=== PATIENT | male | born 1940 | race Caucasian/White ===

== ENCOUNTER → 2018-03-30 13:22 | Outpatient (CLI) | payer MEDICARE | END | disposition home or self-care (01) | LOC: D.CT 13:22 | DX: I65.23 Occlusion and stenosis of bilateral carotid arteries (principal) ==

== ENCOUNTER 2020-07-09 19:41 | Inpatient (IN) | payer MEDICARE ==
[~2020-07-09] VITALS: Ht 177.8 cm; Wt 72.6 kg
[2020-07-09 20:30] VITALS: BP 155/71
[2020-07-09 20:41] LABS: BASOPHILS 0.1 % (0-2); EOSINOPHILS 0.8 % (0-7); HEMATOCRIT 36.2 % (42.0-54.0); HEMOGLOBIN 12.8 g/dL (13.5-17.5); IMMATURE GRANULOCYTES 0.3 % (0-5); LYMPHOCYTES 6.4 % (15-50); MCHC 35.4 g/dL (31.0-37.0); MEAN PLATELET VOLUME 8.8 fL (7.4-10.4); MONOCYTES 9.3 % (2-11); NEUTROPHILS 83.1 % (40-80); PLATELET COUNT 240 10x3/uL (130-400); RBC 3.77 10x6/uL (4.20-6.10); WBC 10.8 10x3/uL (4.8-10.8)
[2020-07-09 21:24] LABS: ALKALINE PHOSPHATASE 82 U/L (30-120); ALT (SGPT) 38 U/L (10-68); AMYLASE - SERUM 154 U/L (25-115); BILIRUBIN - TOTAL 0.63 mg/dL (0.2-1.3); CALCIUM 8.8 mg/dL (8.5-10.1); CARBON DIOXIDE 25.6 mmol/L (21.0-32.0); CREATININE - SERUM 1.3 mg/dL (0.6-1.3); GLUCOSE 113 mg/dL (74-106); LIPASE 442 U/L (73-393); POTASSIUM - SERUM 4.3 mmol/L (3.5-5.1); PROTEIN - SERUM 7.2 g/dL (6.4-8.2); UREA NITROGEN 21 mg/dL (7-18); eGFR NON AFRICAN AMERICAN 57 mL/min (90-120)
[2020-07-09 21:30] VITALS: BP 142/69
[2020-07-09 21:33] LABS: CALC OSMOLALITY 240 mosm/kg (275-300); SODIUM 117 mmol/L (136-145)
[2020-07-09 21:34] LABS: CHLORIDE - SERUM 84 mmol/L (98-107); TROPONIN-I < 0.017 ng/mL (0.000-0.060)
[2020-07-09] MEDS ORDERED: AVAPRO300 MG PO (22:44)
[2020-07-09] MEDS ORDERED: NORVASC10 MG PO (22:46)
[2020-07-09] MEDS ORDERED: ZYRTEC10 MG PO (22:47)
[2020-07-09] MEDS ORDERED: FOLIC ACID0.8 MG PO (22:51)
[2020-07-09] MEDS ORDERED: ZYLOPRIM100 MG PO (22:52)
[2020-07-09] MEDS ORDERED: HYDRALAZINE HCL10 MG PO (22:53)
[2020-07-09 23:49] VITALS: BP 144/58
[2020-07-10 00:21] LABS: BILIRUBIN NEGATIVE (NEGATIVE); KETONE NEGATIVE (NEGATIVE); NITRITE NEGATIVE (NEGATIVE); UROBILINOGEN NORMAL mg/dL (< 2)
[2020-07-10] MEDS ORDERED: PREDNISONE5 MG PO (01:06)
[2020-07-10] MEDS ORDERED: XANAX1 MG PO (01:07)
[2020-07-10] MEDS ORDERED: TRILEPTAL300 MG PO (01:10)
[2020-07-10] MEDS ORDERED: SYNALAR 0.01 %60 ML TOPICAL (01:10)
[2020-07-10 03:12] VITALS: BP 160/69; BMI 23.0
[2020-07-10 04:00] VITALS: BP 160/69
[2020-07-10 06:13] LABS: BASOPHILS 0.1 % (0-2); EOSINOPHILS 1.8 % (0-7); HEMATOCRIT 35.6 % (42.0-54.0); HEMOGLOBIN 12.3 g/dL (13.5-17.5); IMMATURE GRANULOCYTES 0.3 % (0-5); LYMPHOCYTES 7.4 % (15-50); MCH 33.5 pg (26.0-34.0); MCHC 34.6 g/dL (31.0-37.0); MEAN PLATELET VOLUME 8.6 fL (7.4-10.4); MONOCYTES 12.5 % (2-11); NEUTROPHILS 77.9 % (40-80); PLATELET COUNT 215 10x3/uL (130-400); RBC 3.67 10x6/uL (4.20-6.10)
[2020-07-10 06:14] LABS: WBC 7.3 10x3/uL (4.8-10.8)
[2020-07-10 06:17] LABS: APTT 26.1 SECONDS (22.8-39.4)
[2020-07-10 06:21] LABS: INR 0.91 (0.85-1.17); PROTIME 12.3 SECONDS (11.6-15.0)
[2020-07-10 06:29] LABS: ANION GAP 11.4 mmol/L (8-16); CALCIUM 8.5 mg/dL (8.5-10.1); CARBON DIOXIDE 25.2 mmol/L (21.0-32.0); CREATININE - SERUM 1.4 mg/dL (0.6-1.3); MAGNESIUM - SERUM 1.9 mg/dL (1.8-2.4); PHOSPHOROUS 2.7 mg/dL (2.5-4.9); POTASSIUM - SERUM 4.6 mmol/L (3.5-5.1)
[2020-07-10 07:00] VITALS: BP 145/71
[2020-07-10 11:00] VITALS: BP 112/68
[2020-07-10 13:47] VITALS: Ht 177.8 cm; Wt 72.6 kg
--- NOTE | 2020-07-10 15:00 | NUR ---
PT ARRIVED VIA WHEELCHAIR TO ROOM 2102. CALL LIGHT WITHIN REACH. BED IN LOWEST POSITION. COKE RECIEVED PER REQUEST. DENIES FURTHER NEEDS OR PAIN AT THIS TIME. WILL CONTINUE TO MONITOR.
--- NOTE | 2020-07-10 17:00 | NUR ---
CALL LIGHT ANSWERED. PT STATES HE WANTS ANXIETY MEDICATION. STATES HE IS NOT USUALLY PRESCRIBED ANXIETY MEDICATION AND HAS NOT NEEDED IT SINCE ADMISSION. TOLD HIM I WOULD SPEAK TO ABOUT IT. HE THEN STATED "IF THEY DON'T WANT TO GIVE ME ANXIETY MEDICATION THEN I WILL TAKE PAIN MEDICATION." WHEN ASKED WHERE HIS PAIN WAS AND HOW BAD HE STATED "ITS ALL OVER AND 19/08" SPOKE TO GABBIE LANTIGUA
--- NOTE | 2020-07-10 17:08 | NUR ---
PAGE INTO ANGELIC LANTIGUA TO SEE ABOUT RESTARTING PATIENT'S TRILEPTAL 600 MG BID THIS EVENIGN FOR PATIENT JAW PAIN.
--- NOTE | 2020-07-10 18:27 | NUR ---
I have reviewed this patient and I concur with the Shift Assessment completed by the Licensed Practical Nurse today this shift.
--- NOTE | 2020-07-10 19:00 | NUR ---
REPORT RECEIVED, WILL CONTINUE POC. PATIENT IS AAOX4, LYING IN SEMI-FOWLERS POSITION. NO S/S OF DISTRESS OBSERVED, RR EVEN AND UNLABORED ON ROOM AIR. PIV TO RT AC, PATENT, INFUSING NS @ 50ML/HR. PATIENT DENIES NEEDS A THIS TIME. CL IN REACH, BED LOCKED AND LOWERED. WILL CTM.
[2020-07-10 20:00] VITALS: BP 115/67
--- NOTE | 2020-07-10 22:30 | NUR ---
EMPTIED 800CC OF CLEAR LIGHT YELLOW URINE FROM URINAL.
[2020-07-11 04:00] VITALS: BP 123/68
[2020-07-11 07:07] LABS: ANION GAP 9.4 mmol/L (8-16); CALCIUM 8.8 mg/dL (8.5-10.1); CREATININE - SERUM 1.3 mg/dL (0.6-1.3); MAGNESIUM - SERUM 2.1 mg/dL (1.8-2.4); PHOSPHOROUS 3.1 mg/dL (2.5-4.9); POTASSIUM - SERUM 4.4 mmol/L (3.5-5.1)
[2020-07-11 07:17] LABS: BASOPHILS 0.8 % (0-2); EOSINOPHILS 2.8 % (0-7); HEMATOCRIT 38.3 % (42.0-54.0); HEMOGLOBIN 13.2 g/dL (13.5-17.5); IMMATURE GRANULOCYTES 0.3 % (0-5); LYMPHOCYTES 11.7 % (15-50); MCH 34.3 pg (26.0-34.0); MCHC 34.5 g/dL (31.0-37.0); MEAN PLATELET VOLUME 8.6 fL (7.4-10.4); MONOCYTES 11.7 % (2-11); NEUTROPHILS 72.7 % (40-80); PLATELET COUNT 246 10x3/uL (130-400); RBC 3.85 10x6/uL (4.20-6.10); RDW 13.5 % (11.5-14.5); WBC 6.1 10x3/uL (4.8-10.8)
[2020-07-11 07:19] LABS: MCV 99.5 fL (80.0-100.0)
--- NOTE | 2020-07-11 07:56 | NUR ---
Receieved report on pt. patient resting in bed requested a bath.
[2020-07-11 08:00] VITALS: BP 120/71
--- NOTE | 2020-07-11 16:47 | NUR ---
Rehab Prescreening Consult recieved and the chart has been reviewed. He is [employer] managed Medicare and will need a preauthorization for the acute rehab. He has a PT/OT eval ordered but not completed. Once the evals are completed all information will be faxed for their review. Suzan Henriquez RN Clinical Liaison, Rehab
[2020-07-11 20:00] VITALS: BP 124/68
[2020-07-12] VITALS: BP 120/58
[2020-07-12 04:00] VITALS: BP 117/51
[2020-07-12 06:46] LABS: BASOPHILS 0.6 % (0-2); EOSINOPHILS 3.2 % (0-7); HEMATOCRIT 33.1 % (42.0-54.0); IMMATURE GRANULOCYTES 0.3 % (0-5); LYMPHOCYTES 11.4 % (15-50); MCH 33.1 pg (26.0-34.0); MCHC 33.2 g/dL (31.0-37.0); MCV 99.7 fL (80.0-100.0); MEAN PLATELET VOLUME 8.9 fL (7.4-10.4); MONOCYTES 12.9 % (2-11); NEUTROPHILS 71.6 % (40-80); PLATELET COUNT 217 10x3/uL (130-400); RBC 3.32 10x6/uL (4.20-6.10); RDW 13.8 % (11.5-14.5); WBC 6.7 10x3/uL (4.8-10.8)
[2020-07-12 06:53] LABS: ANION GAP 11.8 mmol/L (8-16); CALCIUM 8.2 mg/dL (8.5-10.1); CARBON DIOXIDE 25.5 mmol/L (21.0-32.0); CREATININE - SERUM 1.6 mg/dL (0.6-1.3); PHOSPHOROUS 2.9 mg/dL (2.5-4.9); POTASSIUM - SERUM 4.3 mmol/L (3.5-5.1)
[2020-07-12 07:57] VITALS: BP 109/40
--- NOTE | 2020-07-12 09:46 | NUR ---
REPORT RECEIVED. WILL CONTINUE WITH POC. PT CURRENTLY SITTING ON EDGE OF BED. CALL LIGHT W/I REACH. PT IS AAO AND UP AD RAY. RR EVEN AND UNLABORED ON RA. NS INFUSING @125ML/HR VIA L.FOR PIV. UPON ENTERING THE ROOM, FOUND THE PATIENT TO BE UPSET AND FLUSTERED. ATTEMPTED TO CALM THE PATIENT DOWN AND DISCUSS THE MATTER WITH THE PATIENT. PT WAS UPSET ABOUT MEDICATION. WENT OVER HOME MEDICATIONS AND MEDICATIONS WE WERE ADMININSTERING IN THE HOSPITAL TO REASSURE HIM THAT THERE WAS NO DIFFERENCE BETWEEN THE TWO. PT APOLOGIZED FOR WHAT WAS SAID AND HOW HE CAME ACROSS. PT APPEARS SLIGHTLY CONFUSED TO SITUATION. WHEN LEAVING ROOM PT APPEARED TO BE CALM AND DID NOT REQUEST ANYTHING AT THAT TIME. WILL CTM.
[2020-07-12 11:42] VITALS: BP 93/42
--- NOTE | 2020-07-12 12:13 | MORECARE ---
CASE MANAGEMENT DISCHARGE SUMMARY PATIENT: ADONIS QUINTANILLA UNIT: [id number] ADM DATE: 07/09/20 AGE: 79 : 42 SEX: M ROOM/BED: D.4691 AUTHOR: MILA LUQUE PHYSICIAN: REFERRING PHYSICIAN: TIP LAI MD DATE OF SERVICE: 07/12/20 Discharge Plan Patient Name: ADONIS QUINTANILLA Facility: [facility]:[place] : 1940 Planned Disposition: Home Anticipated Discharge Date: 07/12/20 Discharge Date: Expected LOS: 3 Initial Reviewer: [email or web address] Initial Review Date: 07/10/2020 Generated: 07/12/20 1:13 pm Comments DCP- Discharge Planning Updated by [email or web address]: Franci Lin on 07/12/20 11:[address] CM met with patient to discuss initial discharge planning. Patient is in agreement to proceed with the assessment. Patient reports that he lives at home, alone independently. Patient is alert/oriented. Stairs/steps: None. PCP: Dr. Petty. [facility]acy[facility]. Patient states he has been able to obtain all of his prescribed medications. HHS: Declines. DME: None. 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 CM discussed the availability of HH, Rehab, SNF, OP Therapy, DME services. Patient denies the need for additional services at this time and feels safe returning to previous environment. Patient denies hospitalization within the past 30 days. Patient denies the use of community resources PRESS TENDER SMOKE SIGNAL. Transportation at time of discharge: Family vs neighbor. CM will follow and assist PRN with DC needs/plans. Patient states that he recently lost his dog of 15 years and feels his grieving process has lead to his current illness. CM discussed with the grieving process can affect a person physically, as well as emotionally. Patient was appreciative of out conversation. DCPIA - Discharge Planning Initial Assessment Updated by [email or web address]: Franci Lin on 07/12/20 12:11 pm * Is the patient Alert and Oriented? Yes * How many steps to enter\exit or inside your home? None * PCP Dr. Petty * Pharmacy [facility] [place] * Preadmission Environment Home Alone * ADLs Independent * Equipment None * Other Equipment NA * List name and contact numbers for known caregivers / representatives who currently or will assist patient after discharge: Stacie Scott (sister) * Verbal permission to speak to the caregivers and representatives has been obtained from the patient. N/A * Community resources currently utilized None * Please name any agencies selected above. NA * Additional services required to return to the preadmission environment? No * Can the patient safely return to the preadmission environment? Yes * Has this patient been hospitalized within the prior 30 days at any hospital? No Coverage Notice Reviewer: [id number] Mark Lin Notice Issued Date-Time: 07/12/2020 10:23 Notice Type: IM Discharge Notice Notice Delivered To: Patient Relationship to Patient: Self E Learning Developer Name: Adonis Quintanilla Delivery Method: HAND - Hand Delivered Irene Days: Prior Verbal Notification: Recipient Understood Notice: Yes Recipient Signature: Yes Med Rec Note Co-signed by Attending: Coverage Notice Comment: DC IMM signed/delivered to patient. Original to chart. Patient Name: ADONIS QUINTANILLA Page [phone] at 1213 All edits/amendments must be made on the electronic document DICTATION DATE: 07/12/20 1213 GAS LEAK TESTER: STANISLAV 07/12/20 1213 RPT#: [id number] DC DATE: STATUS: ADM IN [facility] [address] [place] [address] END OF REPORT
--- NOTE | 2020-07-12 13:48 | NUR ---
Nutrition Follow-up: Pt sitting up on edge of bed eating breakfast at time of visit this AM. Pt reports good appetite/PO intake. Denies N/V/C/D. Diet: Cardiac Wt: 160# (07/10) Last BM: 07/11 Labs noted: Na 134, Ca 8.2 Meds noted: Miralax, Protonix, NS @ 75, electrolyte protocol -Encourage PO intake and honor food preferences within diet restrictions. -Monitor wt; noted daily wts ordered. -RD following.
[2020-07-12 15:00] VITALS: BP 132/60
--- NOTE | 2020-07-12 16:30 | MORECARE ---
CASE MANAGEMENT DISCHARGE SUMMARY PATIENT: ADONIS QUINTANILLA UNIT: [id number] ADM DATE: 07/09/20 AGE: 79 : 42 SEX: M ROOM/BED: D.3835 AUTHOR: MILA LUQUE PHYSICIAN: REFERRING PHYSICIAN: TIP LAI MD DATE OF SERVICE: 07/12/20 Discharge Plan Patient Name: ADONIS QUINTANILLA Facility: [facility]:[place] : 1940 Planned Disposition: Home Anticipated Discharge Date: 07/12/20 Discharge Date: Expected LOS: 3 Initial Reviewer: [email or web address] Initial Review Date: 07/10/2020 Generated: 07/12/20 5:29 pm Comments DCP- Discharge Planning Updated by [id number]: Franci Lin on 07/12/20 3:[address] CM met with patient to discuss initial discharge planning. Patient is in agreement to proceed with the assessment. Patient reports that he lives at home, alone independently. Patient is alert/oriented. Stairs/steps: None. PCP: Dr. Petty. [facility]acy: [facility]. Patient states he has been able to obtain all of his prescribed medications. HHS: Declines. DME: Walker. 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 CM discussed the availability of HH, Rehab, SNF, OP Therapy, DME services. Patient denies the need for additional services at this time and feels safe returning to previous environment. Patient denies hospitalization within the past 30 days. Patient denies the use of community resources ROUGH PATCHER. Transportation at time of discharge: Family vs neighbor. CM will follow and assist PRN with DC needs/plans. Patient states that he recently lost his dog of 15 years and feels his grieving process has lead to his current illness. CM discussed with the grieving process can affect a person physically, as well as emotionally. Patient was appreciative of out conversation. DCPIA - Discharge Planning Initial Assessment Updated by [email or web address]: Franci Lin on 07/12/20 12:11 pm * Is the patient Alert and Oriented? Yes * How many steps to enter\exit or inside your home? None * PCP Dr. Petty * [facility] * Preadmission Environment Home Alone * ADLs Independent * Equipment None * Other Equipment NA * List name and contact numbers for known caregivers / representatives who currently or will assist patient after discharge: Stacie Scott (sister) * Verbal permission to speak to the caregivers and representatives has been obtained from the patient. N/A * Community resources currently utilized None * Please name any agencies selected above. NA * Additional services required to return to the preadmission environment? No * Can the patient safely return to the preadmission environment? Yes * Has this patient been hospitalized within the prior 30 days at any hospital? No Coverage Notice Reviewer: [id number] Mark Lin Notice Issued Date-Time: 07/12/2020 10:23 Notice Type: IM Discharge Notice Notice Delivered To: Patient Relationship to Patient: Self Regulatory Product Manager Name: Adonis Quintanilla Delivery Method: HAND - Hand Delivered Irene Days: Prior Verbal Notification: Recipient Understood Notice: Yes Recipient Signature: Yes Med Rec Note Co-signed by Attending: Coverage Notice Comment: DC IMM signed/delivered to patient. Original to chart. Last DP export: 07/12/20 11:13 a Patient Name: ADONIS QUINTANILLA Page [phone] at 1630 All edits/amendments must be made on the electronic document DICTATION DATE: 07/12/201628 REWORKER: STANISLAV 07/12/201628 RPT#: [id number] DC DATE: STATUS: ADM IN [facility] [address] [place] [address] END OF REPORT
--- NOTE | 2020-07-12 16:54 | NUR ---
OT NOTE: PT COMPLETED SIT TO STAND WITH MIN/CGA SECONDARY TO IMPAIRED BALANCE. PT COMPLETED BED MOB WITH CGA. PT COMPLETED UB HYGIENE TASKS AT EOB WITH SETUP. [phone] THANK YOU,SHIV BLAND
[2020-07-12 17:58] VITALS: BP 116/54
--- NOTE | 2020-07-12 19:00 | NUR ---
REPORT RECEIVED, WILL CONTINUE POC. PATIENT IS AAXO4, LYING IN SEMI-FOWLERS POSITION. NO S/S OF DISTRESS OBSERVED, RR EVEN AND UNLABORED ON ROOM AIR. PATIENT DENIES NEEDS AT THIS TIME. CL IN REACH, BED LOCKED AND LOWERED. WILL CTM.
[2020-07-13] VITALS: BP 113/52
[2020-07-13 04:00] VITALS: BP 146/66
[2020-07-13 06:20] LABS: BASOPHILS 0.7 % (0-2); EOSINOPHILS 3.8 % (0-7); HEMATOCRIT 32.4 % (42.0-54.0); HEMOGLOBIN 10.8 g/dL (13.5-17.5); IMMATURE GRANULOCYTES 0.2 % (0-5); LYMPHOCYTES 11.5 % (15-50); MCH 33.5 pg (26.0-34.0); MCHC 33.3 g/dL (31.0-37.0); MCV 100.6 fL (80.0-100.0); MEAN PLATELET VOLUME 8.7 fL (7.4-10.4); MONOCYTES 8.4 % (2-11); NEUTROPHILS 75.4 % (40-80); PLATELET COUNT 197 10x3/uL (130-400); RBC 3.22 10x6/uL (4.20-6.10); RDW 13.8 % (11.5-14.5); WBC 5.8 10x3/uL (4.8-10.8)
[2020-07-13 06:40] LABS: ANION GAP 10.9 mmol/L (8-16); CALCIUM 8.5 mg/dL (8.5-10.1); CARBON DIOXIDE 25.4 mmol/L (21.0-32.0); CREATININE - SERUM 1.3 mg/dL (0.6-1.3); MAGNESIUM - SERUM 1.9 mg/dL (1.8-2.4); PHOSPHOROUS 2.8 mg/dL (2.5-4.9); POTASSIUM - SERUM 4.3 mmol/L (3.5-5.1)
--- NOTE | 2020-07-13 07:15 | NUR ---
RECEIVE SHIFT REPORT. RESTING IN BED. DENIES ANY NEEDS AT THIS TIME. WOULD LIKE ME TO ASK ABOUT GETTING HIS PREDNISONE THAT HE IS TAKING AT HOME. WILL FOLLOW UP. CONTINUE PLAN OF CARE AND SAFETY PRECAUTIONS.
[2020-07-13] MEDS ORDERED: AVAPRO150 MG PO (13:51)
--- NOTE | 2020-07-13 14:09 | MORECARE ---
CASE MANAGEMENT DISCHARGE SUMMARY PATIENT: ADONIS QUINTANILLA UNIT: [id number] ADM DATE: 07/09/20 AGE: 79 : 42 SEX: M ROOM/BED: D.1187 AUTHOR: MILA LUQUE PHYSICIAN: REFERRING PHYSICIAN: TIP LAI MD DATE OF SERVICE: 07/13/20 Discharge Plan Patient Name: ADONIS QUINTANILLA Facility: [facility]:[place] : 1940 Planned Disposition: Home Anticipated Discharge Date: 07/12/20 Discharge Date: Expected LOS: 3 Initial Reviewer: [email or web address] Initial Review Date: 07/10/2020 Generated: 07/13/20 3:09 pm DCP- Discharge Planning Updated by [email or web address]: Franci Lin on 07/12/20 3:[address] CM met with patient to discuss initial discharge planning. Patient is in agreement to proceed with the assessment. Patient reports that he lives at home, alone independently. Patient is alert/oriented. Stairs/steps: None. PCP: Dr. Petty. [facility]acy: [facility]. Patient states he has been able to obtain all of his prescribed medications. HHS: Declines. DME: Walker. 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 CM discussed the availability of HH, Rehab, SNF, OP Therapy, DME services. Patient denies the need for additional services at this time and feels safe returning to previous environment. Patient denies hospitalization within the past 30 days. Patient denies the use of community resources IMAGING SYSTEM ADMINISTRATOR. Transportation at time of discharge: Family vs neighbor. CM will follow and assist PRN with DC needs/plans. Patient states that he recently lost his dog of 15 years and feels his grieving process has lead to his current illness. CM discussed with the grieving process can affect a person physically, as well as emotionally. Patient was appreciative of out conversation. DCPIA - Discharge Planning Initial Assessment Updated by [email or web address]: Franci Lin on 07/12/20 12:11 pm * Is the patient Alert and Oriented? Yes * How many steps to enter\exit or inside your home? None * PCP Dr. Petty * [facility] * Preadmission Environment Home Alone * ADLs Independent * Equipment None * Other Equipment NA * List name and contact numbers for known caregivers / representatives who currently or will assist patient after discharge: Stacie Scott (sister) * Verbal permission to speak to the caregivers and representatives has been obtained from the patient. N/A * Community resources currently utilized None * Please name any agencies selected above. NA * Additional services required to return to the preadmission environment? No * Can the patient safely return to the preadmission environment? Yes * Has this patient been hospitalized within the prior 30 days at any hospital? No Coverage Notice Reviewer: [id number] Mark Lin Notice Issued Date-Time: 07/12/2020 10:23 Notice Type: IM Discharge Notice Notice Delivered To: Patient Relationship to Patient: Self Farrowing Worker Name: Adonis Quintanilla Delivery Method: HAND - Hand Delivered Irene Days: Prior Verbal Notification: Recipient Understood Notice: Yes Recipient Signature: Yes Med Rec Note Co-signed by Attending: Coverage Notice Comment: DC IMM signed/delivered to patient. Original to chart. Last DP export: 07/12/20 3:30 p Patient Name: ADONIS QUINTANILLA Page [phone] at 1409 All edits/amendments must be made on the electronic document DICTATION DATE: 07/13/201408 FINE CRAFT ARTIST: STANISLAV 07/13/20 1409 RPT#: [id number] DC DATE: STATUS: ADM IN [facility] [address] [place] [address] END OF REPORT
--- NOTE | 2020-07-13 15:05 | MORECARE ---
CASE MANAGEMENT DISCHARGE SUMMARY PATIENT: ADONIS QUINTANILLA UNIT: [id number] ADM DATE: 07/09/20 AGE: 79 : 42 SEX: M ROOM/BED: D.3391 AUTHOR: MILA LUQUE PHYSICIAN: REFERRING PHYSICIAN: TIP LAI MD DATE OF SERVICE: 07/13/20 Discharge Plan Patient Name: ADONIS QUINTANILLA Facility: [facility]:[place] : 1940 Planned Disposition: Home Anticipated Discharge Date: 07/12/20 Discharge Date: Expected LOS: 3 Initial Reviewer: [email or web address] Initial Review Date: 07/10/2020 Generated: 07/13/20 4:05 pm DCP- Discharge Planning Updated by [email or web address]: Franci Lin on 07/12/20 3:[address] CM met with patient to discuss initial discharge planning. Patient is in agreement to proceed with the assessment. Patient reports that he lives at home, alone independently. Patient is alert/oriented. Stairs/steps: None. PCP: Dr. Petty. [facility]acy: [facility]. Patient states he has been able to obtain all of his prescribed medications. HHS: Declines. DME: Walker. 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 CM discussed the availability of HH, Rehab, SNF, OP Therapy, DME services. Patient denies the need for additional services at this time and feels safe returning to previous environment. Patient denies hospitalization within the past 30 days. Patient denies the use of community resources MARINE ENGINEER CPVEC. Transportation at time of discharge: Family vs neighbor. CM will follow and assist PRN with DC needs/plans. Patient states that he recently lost his dog of 15 years and feels his grieving process has lead to his current illness. CM discussed with the grieving process can affect a person physically, as well as emotionally. Patient was appreciative of out conversation. DCPIA - Discharge Planning Initial Assessment Updated by [email or web address]: Franci Lin on 07/12/20 12:11 pm * Is the patient Alert and Oriented? Yes * How many steps to enter\exit or inside your home? None * PCP Dr. Petty * [facility] * Preadmission Environment Home Alone * ADLs Independent * Equipment None * Other Equipment NA * List name and contact numbers for known caregivers / representatives who currently or will assist patient after discharge: Stacie Scott (sister) * Verbal permission to speak to the caregivers and representatives has been obtained from the patient. N/A * Community resources currently utilized None * Please name any agencies selected above. NA * Additional services required to return to the preadmission environment? No * Can the patient safely return to the preadmission environment? Yes * Has this patient been hospitalized within the prior 30 days at any hospital? No Coverage Notice Reviewer: [email or web address] Mark Lin Notice Issued Date-Time: 07/12/2020 10:23 Notice Type: IM Discharge Notice Notice Delivered To: Patient Relationship to Patient: Self Railway Patrol Officer Name: Adonis Quintanilla Delivery Method: HAND - Hand Delivered Irene Days: Prior Verbal Notification: Recipient Understood Notice: Yes Recipient Signature: Yes Med Rec Note Co-signed by Attending: Coverage Notice Comment: DC IMM signed/delivered to patient. Original to chart. Last DP export: 07/13/20 1:09 p Patient Name: ADONIS QUINTANILLA Page [phone] at 1505 All edits/amendments must be made on the electronic document DICTATION DATE: 07/13/20 1505 SQL SSRS DEVELOPER: STANISLAV 07/13/20 1505 RPT#: [id number] DC DATE: STATUS: ADM IN [facility] [address] [place] [address] END OF REPORT
--- NOTE | 2020-07-13 15:58 | MORECARE ---
CASE MANAGEMENT DISCHARGE SUMMARY PATIENT: ADOINS QUINTANILLA UNIT: [id number] ADM DATE: 07/09/20 AGE: 79 : 42 SEX: M ROOM/BED: D.4393 AUTHOR: MILA LUQUE PHYSICIAN: REFERRING PHYSICIAN: TIP LAI MD DATE OF SERVICE: 07/13/20 Discharge Plan Patient Name: ADONIS QUINTANILLA Facility: [facility]:[place] : 1940 Planned Disposition: Home Anticipated Discharge Date: 07/12/20 Discharge Date: Expected LOS: 3 Initial Reviewer: [email or web address] Initial Review Date: 07/10/2020 Generated: 07/13/20 4:58 pm Comments DCP- Discharge Planning Updated by [email or web address]: Leticia Adams on 07/13/20 2:[address] Patient Name: ADONIS QUINTANILLA Admission Status: ER Accout number: [id number] Admission Date: 07-09-2020 : 1940 Admission Diagnosis:NAUSEA WITH VOMITING, UNSPECIFIED Attending: TIP LAI Current LOS: 4 Anticipated DC Date: 07-12-2020 Planned Disposition: Home Primary Insurance: [employer] CHO[employer] PPO [facility] Discharge Planning Comments:Cm met with pt to assist with discharge planning. The pt states he does not want to go to rehab, instead he would like to go home and get OP therapy at [facility]. Pt states his PCP signed him up for that but he has not gone yet. Cm called [facility] PT and spoke with Aziza who made and appointment for ThursdayJul 16 at 1 pm. Pt states he will need a ride home. nursing can call a taxi at [phone] for ride. CM will continue to assist in dc planning. Tour Production Supervisor: Leticia Adams DCP- Discharge Planning Updated by [id number]: Franci Lin on 07/12/20 3:[address] CM met with patient to discuss initial discharge planning. Patient is in agreement to proceed with the assessment. Patient reports that he lives at home, alone independently. Patient is alert/oriented. Stairs/steps: None. PCP: Dr. Petty. [facility]. Patient states he has been able to obtain all of his prescribed medications. HHS: Declines. DME: Walker. 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 CM discussed the availability of HH, Rehab, SNF, OP Therapy, DME services. Patient denies the need for additional services at this time and feels safe returning to previous environment. Patient denies hospitalization within the past 30 days. Patient denies the use of community resources TRACK REPAIRER HELPER. Transportation at time of discharge: Family vs neighbor. CM will follow and assist PRN with DC needs/plans. Patient states that he recently lost his dog of 15 years and feels his grieving process has lead to his current illness. CM discussed with the grieving process can affect a person physically, as well as emotionally. Patient was appreciative of out conversation. DCPIA - Discharge Planning Initial Assessment Updated by [id number]: Franci Lin on 07/12/20 12:11 pm * Is the patient Alert and Oriented? Yes * How many steps to enter\exit or inside your home? None * PCP Dr. Petty * [facility] * Preadmission Environment Home Alone * ADLs Independent * Equipment None * Other Equipment NA * List name and contact numbers for known caregivers / representatives who currently or will assist patient after discharge: Stacie Scott (sister) * Verbal permission to speak to the caregivers and representatives has been obtained from the patient. N/A * Community resources currently utilized None * Please name any agencies selected above. NA * Additional services required to return to the preadmission environment? No * Can the patient safely return to the preadmission environment? Yes * Has this patient been hospitalized within the prior 30 days at any hospital? No Coverage Notice Reviewer: [email or web address] - Franci Lin Notice Issued Date-Time: 07/12/2020 10:23 Notice Type: IM Discharge Notice Notice Delivered To: Patient Relationship to Patient: Self Disc Pad Grinding Machine Feeder Name: Adonis Quintanilla Delivery Method: HAND - Hand Delivered Irene Days: Prior Verbal Notification: Recipient Understood Notice: Yes Recipient Signature: Yes Med Rec Note Co-signed by Attending: Coverage Notice Comment: DC IMM signed/delivered to patient. Original to chart. Last DP export: 07/13/20 2:05 p Patient Name: ADONIS QUINTANILLA Page [id number] at 1558 All edits/amendments must be made on the electronic document DICTATION DATE: 07/13/201557 PRACTICAL NURSE: STANISLAV 07/13/20 155 RPT#: [id number] [place] DATE: STATUS: ADM IN [facility] [address] [place] [address] END OF REPORT
--- NOTE | 2020-07-13 16:43 | NUR ---
Rehab Note- [facility] initiated 07/12 with clinicals faxed for review. Spoke with Diana with [facility] on 07/13, still pending and was requesting a Peer to Peer along with [facility] process- spoke with LILI Esquivel and provided name and number to contact for [facility] process. Will continue to await determination at this time. Thank you for this referral! Kimmie Corbett RN Clinical Liaison, [facility] Rehab
--- NOTE | 2020-07-13 16:54 | NUR ---
D/C LEFT FOREARM IV, TIP INTACT. DISCHARGE INSTRUCTIONS GIVEN VERBALLY AND HANDOUTS GIVEN. TAKEN TO ED ENTRACE VIA WHEELCHAIR. CAB AT ENTRANCE TO TAKE HIM HOME. REMAINS FREE FROM INJURY.
--- NOTE | 2020-07-13 17:20 | NUR ---
OT NOTE: PT COMPLETED EOB SITTING WITH WITH MOD I. PT COMPLETED ADL MOB WITH CGA [id number] TO DECREASED BALANCE. PT COMPLETED HYGIENE TASKS WITH BUE AROM WITHIN FUNCTIONAL LIMITS. [phone] THANK YOU,SHIV BLAND
--- NOTE | 2020-07-16 09:03 | MORECARE ---
CASE MANAGEMENT DISCHARGE SUMMARY PATIENT: ADONIS QUINTANILLA UNIT: [id number] ADM DATE: 07/09/20 AGE: 79 : 44 SEX: M ROOM/BED: D.0526 AUTHOR: MILA LUQUE PHYSICIAN: REFERRING PHYSICIAN: TIP LAI MD DATE OF SERVICE: 07/16/20 Discharge Plan Patient Name: ADONIS QUINTANILLA Facility: [facility]:[place] : 1940 Planned Disposition: Home Anticipated Discharge Date: 07/12/20 Discharge Date: 07/13/2020 Expected LOS: 3 Initial Reviewer: [email or web address] Initial Review Date: 07/10/2020 Generated: 07/16/20 10:02 am Comments DCP- Discharge Planning Updated by [email or web address]: Leticia Adams on 07/13/20 2:[address] Patient Name: ADONIS QUINTANILLA Admission Status: ER Accout number: [id number] Admission Date: 07-09-2020 : 1940 Admission Diagnosis:NAUSEA WITH VOMITING, UNSPECIFIED Attending: TIP LAI Current LOS: 4 Anticipated DC Date: 07-12-2020 Planned Disposition: Home Primary Insurance: [employer] CHO[employer] PPO [facility] Discharge Planning Comments:Cm met with pt to assist with discharge planning. The pt states he does not want to go to rehab, instead he would like to go home and get OP therapy at [facility]. Pt states his PCP signed him up for that but he has not gone yet. Cm called [facility] PT and spoke with Aziza who made and appointment for ThursdayJul 16 at 1 pm. Pt states he will need a ride home. nursing can call a taxi at [phone] for ride. CM will continue to assist in dc planning. Accuracy Expert: Leticia Adams DCP- Discharge Planning Updated by [email or web address]: Franci Lin on 07/12/20 3:[address] CM met with patient to discuss initial discharge planning. Patient is in agreement to proceed with the assessment. Patient reports that he lives at home, alone independently. Patient is alert/oriented. Stairs/steps: None. PCP: Dr. Petty. [facility]acy[facility] Patient states he has been able to obtain all of his prescribed medications. HHS: Declines. DME: Walker. 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 CM discussed the availability of HH, Rehab, SNF, OP Therapy, DME services. Patient denies the need for additional services at this time and feels safe returning to previous environment. Patient denies hospitalization within the past 30 days. 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 Transportation at time of discharge: Family vs neighbor. CM will follow and assist PRN with DC needs/plans. Patient states that he recently lost his dog of 15 years and feels his grieving process has lead to his current illness. CM discussed with the grieving process can affect a person physically, as well as emotionally. Patient was appreciative of out conversation. DCPIA - Discharge Planning Initial Assessment Updated by [email or web address]: Franci Lin on 07/12/20 12:11 pm * Is the patient Alert and Oriented? Yes * How many steps to enter\exit or inside your home? None * PCP Dr. Petty * Pharmacy [facility] * Preadmission Environment Home Alone * ADLs Independent * Equipment None * Other Equipment NA * List name and contact numbers for known caregivers / representatives who currently or will assist patient after discharge: Stacie Scott (sister) * Verbal permission to speak to the caregivers and representatives has been obtained from the patient. N/A * Community resources currently utilized None * Please name any agencies selected above. NA * Additional services required to return to the preadmission environment? No * Can the patient safely return to the preadmission environment? Yes * Has this patient been hospitalized within the prior 30 days at any hospital? No Coverage Notice Reviewer: [email or web address] - Franci Lin Notice Issued Date-Time: 07/12/2020 10:23 Notice Type: IM Discharge Notice Notice Delivered To: Patient Relationship to Patient: Self Chief Medical Physicist Name: Adonis Quintanilla Delivery Method: HAND - Hand Delivered Irene Days: Prior Verbal Notification: Recipient Understood Notice: Yes Recipient Signature: Yes Med Rec Note Co-signed by Attending: Coverage Notice Comment: DC IMM signed/delivered to patient. Original to chart. Last DP export: 07/13/20 2:58 p Patient Name: ADONIS QUINTANILLA Page [id number] at 0903 All edits/amendments must be made on the electronic document DICTATION DATE: 07/16/20901 SAW SUPERINTENDENT: STANISLAV 07/16/20901 RPT#: [id number] DC DATE:07/13/20 STATUS: DIS IN [facility] [address] [place] [id number] END OF REPORT
== END 2020-07-13 16:54 | disposition home or self-care (01) | DRG 640 ==
LOC: D.ER 19:41 → D.M2 23:32
PROVIDERS: Emergency Medicine; ADMIT Family Medicine; ATTEND Family Medicine
DX: E87.1 Hypo-osmolality and hyponatremia (principal); K85.90 Acute pancreatitis without necrosis or infection, unspecified; E86.0 Dehydration; D64.9 Anemia, unspecified; K59.00 Constipation, unspecified; F41.9 Anxiety disorder, unspecified; I10 Essential (primary) hypertension; A05.9 Bacterial foodborne intoxication, unspecified; Z86.73 Personal history of transient ischemic attack (TIA), and cerebral infarction without residual deficits

== ENCOUNTER 2020-07-16 12:13 | Emergency (ER) | payer MEDICARE ==
[~2020-07-16] VITALS: Ht 177.8 cm; Wt 72.7 kg
[~2020-07-16 12:13] MED LIST: AVAPRO150 MG PO; AVAPRO300 MG PO; FOLIC ACID0.8 MG PO; HYDRALAZINE HCL10 MG PO; NORVASC10 MG PO; PREDNISONE5 MG PO; SYNALAR 0.01 %60 ML TOPICAL; TRILEPTAL300 MG PO; XANAX1 MG PO; ZYLOPRIM100 MG PO; ZYRTEC10 MG PO
[2020-07-16 12:23] VITALS: Ht 177.8 cm; Wt 72.7 kg
[2020-07-16] MEDS ORDERED: LUMIGAN 0.01%2.5 ML EACH EYE (12:31)
[2020-07-16] MEDS ORDERED: HYDROCHLOROTH12.5 M1 PO (12:32)
[2020-07-16 12:42] LABS: BASOPHILS 0.4 % (0-2); EOSINOPHILS 2.2 % (0-7); HEMATOCRIT 33.5 % (42.0-54.0); HEMOGLOBIN 11.6 g/dL (13.5-17.5); IMMATURE GRANULOCYTES 0.1 % (0-5); LYMPHOCYTES 10.8 % (15-50); MCHC 34.6 g/dL (31.0-37.0); MCV 98.2 fL (80.0-100.0); MEAN PLATELET VOLUME 8.6 fL (7.4-10.4); MONOCYTES 8.1 % (2-11); NEUTROPHILS 78.4 % (40-80); RBC 3.41 10x6/uL (4.20-6.10); RDW 13.1 % (11.5-14.5); WBC 7.4 10x3/uL (4.8-10.8)
[2020-07-16 12:46] LABS: CALC OSMOLALITY 251 mosm/kg (275-300); CALCIUM 9.7 mg/dL (8.5-10.1); CARBON DIOXIDE 24.4 mmol/L (21.0-32.0); CHLORIDE - SERUM 90 mmol/L (98-107); CREATININE - SERUM 1.4 mg/dL (0.6-1.3); GLUCOSE 111 mg/dL (74-106); POTASSIUM - SERUM 4.2 mmol/L (3.5-5.1); SODIUM 123 mmol/L (136-145); UREA NITROGEN 21 mg/dL (7-18); eGFR NON AFRICAN AMERICAN 52 mL/min (90-120)
[2020-07-16 12:55] LABS: ALBUMIN 4.1 g/dL (3.4-5.0); ALKALINE PHOSPHATASE 79 U/L (30-120); ALT (SGPT) 54 U/L (10-68); AMYLASE - SERUM 148 U/L (25-115); BILIRUBIN - TOTAL 0.59 mg/dL (0.2-1.3); LIPASE 266 U/L (73-393); PROTEIN - SERUM 7.5 g/dL (6.4-8.2); TROPONIN-I < 0.017 ng/mL (0.000-0.060)
[2020-07-16 12:57] LABS: PLATELET COUNT 251 10x3/uL (130-400)
[2020-07-16 13:24] LABS: BILIRUBIN NEGATIVE (NEGATIVE); KETONE NEGATIVE (NEGATIVE); NITRITE NEGATIVE (NEGATIVE); UROBILINOGEN NORMAL mg/dL (< 2)
[2020-07-16 13:25] LABS: BACTERIA FEW HPF (NONE SEEN); EPITHELIAL CELLS RARE /hpf (0-5); WHITE CELLS - URINE RARE HPF (0-1)
[2020-07-16] MEDS ORDERED: ZOFRAN ODT4 MG/UDTAB PO (14:30)
[2020-07-16 15:26] VITALS: BP 150/70
== END 2020-07-16 15:00 | disposition home or self-care (01) ==
LOC: D.ER 12:13
PROVIDERS: Family Medicine
DX: R11.0 Nausea (principal); E87.1 Hypo-osmolality and hyponatremia; I10 Essential (primary) hypertension

== ENCOUNTER → 2021-03-11 14:40 | Outpatient (CLI) | payer MEDICARE ==
[2020-07-16 12:23] VITALS: BMI 23.0
[~2021-03-11 14:40] MED LIST changes: +HYDROCHLOROTH12.5 M1 PO; +LUMIGAN 0.01%2.5 ML EACH EYE; +ZOFRAN ODT4 MG/UDTAB PO
== END | disposition home or self-care (01) ==
LOC: D.CT 13:15
PROVIDERS: ATTEND Nurse Practitioner
DX: K43.9 Ventral hernia without obstruction or gangrene (principal)